=== PATIENT | male | born 1960 | race Caucasian/White ===

== ENCOUNTER 2020-09-12 00:20 | Observation (INO) | payer BC ==
[2020-09-12] MEDS ORDERED: HEPARIN SODIUM 1,000 UN/ML (10ML VL) IV PRN (00:22)
[2020-09-12] MEDS ORDERED: HEPARIN SOD,PORK IN 0.45% NACL 25,000 UNIT in 0.45% NACL 1 250ML.BAG IV SCH (00:30)
[2020-09-12] MEDS ORDERED: NALOXONE 0.4 MG/ML 1 ML VIAL IV PRN (01:02)
--- NOTE | 2020-09-12 01:03 | ED ---
SOB HPI - General Source: patient, EMS Mode of arrival: EMS Limitations: no limitations <Karolina Nye - Last Filed: 09/12/20 02:03> <Chemo Guerra - Last Filed: 09/12/20 07:34> - General Chief Complaint: Shortness of Breath Stated Complaint: SOB - History of Present Illness Initial Comments: 60-year-old male presenting as transfer from [facility] for diagnosis of pulmonary embolism. Patient states that he has been ill with covi 19 x 2 weeks, he states his symptoms initially began with cough shortness of breath fevers chills and body aches. Patient states that these have been persistent symptoms for the past 2 weeks and worsened over the past few days. Patient presented to [facility] where he was diagnosed today after CT angiography of the chest with pulmonary embolism (small right sided). Patient was also found to be hyponatremic (126). Have both glucose and ketones in urine, with serum glucose of 261-pt is a type 1 diabetic. Patient hydrated, placed on heparin drip with bolus at outside facility and transferred to our facility. (Karolina Nye) - Related Data Allergies Allergy/AdvReac Type Severity Reaction Status Date / Time No Known Allergies Allergy Verified 09/12/20 00:25 Review of Systems ROS Other: All systems not noted in ROS Statement are negative. <Karolina Nye - Last Filed: 09/12/20 02:03> ROS Other: All systems not noted in ROS Statement are negative. <Chemo Guerra - Last Filed: 09/12/20 07:34> ROS Statement: Those systems with pertinent positive or pertinent negative responses have been documented in the HPI. Past Medical History Past Medical History: Diabetes Mellitus, Hyperlipidemia, Hypertension History of Any Multi-Drug Resistant Organisms: None Reported Past Surgical History: Orthopedic Surgery Past Psychological History: No Psychological Hx Reported Smoking Status: Never smoker Past Alcohol Use History: Rare Past Drug Use History: None Reported <Karolina Nye - Last Filed: 09/12/20 02:03> - Past Family History Father Family Medical History: CVA/TIA Mother Family Medical History: No Reported History <Chemo Guerra - Last Filed: 09/12/20 07:34> General Exam Limitations: no limitations <Karolina Nye - Last Filed: 09/12/20 02:03> - General Exam Comments Initial Comments: General: The patient is awake and alert, in no distress, and does not appear acutely ill. Eye: Pupils are equal, round and reactive to light, extra-ocular movements are intact. No nystagmus. There is normal conjunctiva bilaterally. No signs of icterus. Ears, nose, mouth and throat: There are moist mucous membranes and no oral lesions. Neck: The neck is supple, there is no tenderness or JVD. Cardiovascular: There is a regular rate and rhythm. No murmur, rub or gallop is appreciated. Respiratory: Lungs are clear to auscultation, respirations are non-labored, breath sounds are equal. No wheezes, stridor, rales, or rhonchi. Gastrointestinal: Soft, non-distended, non-tender abdomen without masses or organomegaly noted. There is no rebound or guarding present. Musculoskeletal: Normal ROM, no tenderness. Strength 5/5. Sensation intact. Pulses equal bilaterally 2+. Neurological: A&O x 3. CN II-XII intact, There are no obvious motor or sensory deficits. Coordination appears grossly intact. Speech is normal. Skin: Skin is warm and dry and no rashes or lesions are noted. Psychiatric: Cooperative, appropriate mood & affect, normal judgment. (Karolina Nye) Course Vital Signs 09/12/20 09/12/20 09/12/20 00:26 01:15 02:00 Temperature 97.9 F Pulse Rate 68 58 L Respiratory 18 16 18 Rate Blood Pressure 130/84 130/84 O2 Sat by Pulse 94 L 96 Oximetry Medical Decision Making - Lab Data Result diagrams: 09/12/20 01:15 <Karolina Nye - Last Filed: 09/12/20 02:03> - Lab Data Result diagrams: 09/12/20 01:15 <Chemo Guerra - Last Filed: 09/12/20 07:34> - Medical Decision Making 60-year-old male presenting to the emergency department as a transfer from outside facility for NATE goddard. Pt has history of type 1 DM. Patient continued on heparin drip. He does not appear in distress. Oxygenating well on room air. no hypotension or tachycardia. Patient is a type I diabetic, with a current insulin pump. patient sugar 260 at outside facility. will continue to franchesca tor/hydrate. routine labs ordered for morning. Patient agreeable to admission. Dr. Guerra agreeable to admission. Pulmonology on consult. (Karolina Nye) Disposition Is patient prescribed a controlled substance at d/c from ED?: No Time of Disposition: 01:03 Decision to Admit Reason: Admit from EC Decision Date: 09/12/20 Decision Time: 01:03 <Karolina Nye - Last Filed: 09/12/20 02:03> <Chemo Guerra - Last Filed: 09/12/20 07:34> Clinical Impression: Dyspnea, COVID-19, Pneumonia due to COVID-19 virus, Pulmonary embolism, Elevated glucose Disposition: ADMITTED IP TO THIS HOSP Condition: Stable
[2020-09-12 01:52] LABS: Basophils % (A) 1 %; Eosinophils # (A) 0.1 k/uL (0-0.7); Eosinophils % (A) 1 %; HCT 41.9 % (39.0-53.0); HGB 14.3 gm/dL (13.0-17.5); Lymphocytes # (A) 0.7 k/uL (1.0-4.8); Lymphocytes % (A) 12 %; MCH 30.4 pg (25.0-35.0); MCV 89.6 fL (80.0-100.0); Mean Platelet Volume 8.6; Monocytes # (A) 0.6 k/uL (0-1.0); Monocytes % (A) 11 %; Neutrophils # (A) 4.4 k/uL (1.3-7.7); Neutrophils % (A) 73 %; Platelet Count 248 k/uL (150-450); RBC 4.68 m/uL (4.30-5.90); RDW 12.1 % (11.5-15.5)
[2020-09-12 01:53] LABS: Partial Thromboplastin Time 40.8 sec (22.0-30.0); Prothrombin Time 10.7 sec (9.0-12.0)
[2020-09-12] MEDS ORDERED: INSPUCOR MISCELLANE PRN (03:30)
[2020-09-12] MEDS ORDERED: INSULIN ASPART (NovoLOG) 100 UNIT/ML VIAL SQ PRN (03:30)
[2020-09-12] MEDS ORDERED: INSULIN PUMP BASAL RATES 1 EACH MISC MISCELLANE PRN (03:30)
[2020-09-12 03:41] VITALS: RESP 18
[2020-09-12] MEDS ORDERED: SODIUM CHLORIDE 0.9% 1,000 ML IV SCH (05:15)
[2020-09-12 06:17] LABS: Glucose,Whole Blood 117 mg/dL (75-99)
[2020-09-12] MEDS: INSULIN PUMP MEAL BOLUS 1 UNIT MISC MISCELLANE SCH ×2 (06:19→12:48)
[2020-09-12 09:09] LABS: Basophils % (A) 1 %; Eosinophils # (A) 0.2 k/uL (0-0.7); Eosinophils % (A) 3 %; HCT 44.4 % (39.0-53.0); HGB 15.1 gm/dL (13.0-17.5); Lymphocytes # (A) 0.9 k/uL (1.0-4.8); Lymphocytes % (A) 15 %; MCH 30.5 pg (25.0-35.0); MCHC 33.9 g/dL (31.0-37.0); Mean Platelet Volume 9.3; Monocytes # (A) 0.5 k/uL (0-1.0); Monocytes % (A) 8 %; Neutrophils # (A) 4.4 k/uL (1.3-7.7); Neutrophils % (A) 72 %; Platelet Count 260 k/uL (150-450); RBC 4.93 m/uL (4.30-5.90); RDW 12.2 % (11.5-15.5); WBC 6.1 k/uL (3.8-10.6)
[2020-09-12 09:34] LABS: ALT 25 U/L (4-49); AST 38 U/L (17-59); African American GFR (CKD) >90 (>60 ml/min/1.73 sqM); Albumin 2.4 g/dL (3.5-5.0); Alkaline Phosphatase 74 U/L (38-126); Anion Gap 6 mmol/L; Blood Urea Nitrogen 16 mg/dL (9-20); Calcium 7.8 mg/dL (8.4-10.2); Carbon Dioxide 27 mmol/L (22-30); Chloride 98 mmol/L (98-107); Glucose 114 mg/dL (74-99); Non-African American GFR(CKD) >90 (>60 ml/min/1.73 sqM); Potassium 4.2 mmol/L (3.5-5.1); Sodium 131 mmol/L (137-145); Total Bilirubin 1.1 mg/dL (0.2-1.3); Total Protein 4.8 g/dL (6.3-8.2)
--- NOTE | 2020-09-12 11:29 | XR ---
EXAMINATION TYPE: XR chest 1V portable DATE OF EXAM: 09/12/2020 Comparison: None Clinical History: 60-year-old male CoVID pneumonia Findings: Heart normal size. Aorta and pulmonary vascularity within normal limits. Patchy bilateral interstitia l opacities more confluent in the periphery of the lungs. No pleural effusion. Impression: Patchy bilateral COVID pneumonia.
[2020-09-12] MEDS ORDERED: INSULIN ASPART SQ PRN (11:30)
[2020-09-12] MEDS ORDERED: SODIUM CHLORIDE 0.9% 500 ML 500 ML IV ONE (11:31)
[2020-09-12 11:36] LABS: Glucose,Whole Blood 346 mg/dL (75-99)
[2020-09-12 12:43] VITALS: BP 125/78; PULSE 71; TEMP 98
--- NOTE | 2020-09-12 14:43 | P.DS ---
Providers Date of admission: 09/12/20 01:04 Attending physician: Apoorva Darling Consults: 09/12/20 01:04 Consult Physician Routine Consulting Provider: Morenita Peace Consult Reason/Comments: covid with small PE Do you want consulting provider notified?: Yes, Notify in am Primary care physician: Jose Manuel Whalen [facility] Course: Refer to [facility] for further details Patient Condition at Discharge: Stable Plan - Discharge Summary Discharge Rx Participant: No New Discharge Prescriptions: New Apixaban [Eliquis Starter Pack (for VTE)] 0 mg PO DIRECTED 30 Days #1 pack Ascorbic Acid [Vitamin C] 500 mg PO BID #30 tablet Famotidine [Pepcid] 20 mg PO BID #10 tablet lisinopriL [Zestril] 20 mg PO DAILY #30 tab Zinc Sulfate 50 mg PO 20 #30 capsule Continue Insulin Aspart (Niacinamide) [Fiasp 100 Unit/ml Vial] 0.01 unit SQ CONTINUOUS MDD 90 UNITS Atorvastatin Calcium [Lipitor] 40 mg PO DAILY Primidone [Mysoline] 50 mg PO DAILY Discontinued lisinopriL 30 mg PO DAILY Discharge Medication List Apixaban [Eliquis Starter Pack (for VTE)] 0 mg PO DIRECTED 30 Days #1 pack 09/12/20 [Rx] Ascorbic Acid [Vitamin C] 500 mg PO BID #30 tablet 09/12/20 [Rx] Atorvastatin Calcium [Lipitor] 40 mg PO DAILY 09/12/20 [History] Famotidine [Pepcid] 20 mg PO BID #10 tablet 09/12/20 [Rx] Insulin Aspart (Niacinamide) [Fiasp 100 Unit/ml Vial] 0.01 unit SQ CONTINUOUS MDD 90 UNITS 09/12/20 [History] Primidone [Mysoline] 50 mg PO DAILY 09/12/20 [History] Zinc Sulfate 50 mg PO 20 #30 capsule 09/12/20 [Rx] lisinopriL [Zestril] 20 mg PO DAILY #30 tab 09/12/20 [Rx] Follow up Appointment(s)/Referral(s): Jose Manuel Whalen MD [Primary Care Provider] - 3 Days Patient Instructions/Handouts: Pulmonary Embolism (DC) Discharge Disposition: HOME SELF-CARE
--- NOTE | 2020-09-12 14:43 | P.HPIM ---
History of Present Illness 60-year-old male presenting as transfer from [facility] for diagnosis of pulmonary embolism. Patient states that he has been ill with covi 19 x 2 weeks, he states his symptoms initially began with cough shortness of breath fevers chills and body aches. Patient states that these have been persistent symptoms for the past 2 weeks and worsened over the past few days. Patient presented to [facility] where he was diagnosed today after CT angiography of the chest with pulmonary embolism (small right sided). Patient was also found to be hyponatremic (126). Have both glucose and ketones in urine, . Patient hydrated, placed on heparin drip with bolus at outside facility and transferred to our facility. Patient is presently not requiring oxygen while ambulating. Patient will be discharged on Eliquis. Patient's blood sugars are bit high but not in the diabetic ketoacidosis. Patient is also hyponatremic will give a bolus of IV fluid. Patient will be provided prescription for [place] with vitamins will not be given prescription for Decadron because of concerns of diabetic ketoacidosis and patient is not hypoxic at this time. Review of Systems REVIEW OF SYSTEMS: CONSTITUTIONAL: As mentioned in HPI HEENT: No recent visual problems or hearing problems. Denied any sore throat. CARDIOVASCULAR: No chest pain, orthopnea, PND, no palpitations, no syncope. PULMONARY: No shortness of breath, no cough, no hemoptysis. GASTROINTESTINAL: No diarrhea, no nausea, no vomiting, no abdominal pain. NEUROLOGICAL: No headaches, no weakness, no numbness. HEMATOLOGICAL: Denies any bleeding or petechiae. GENITOURINARY: Denies any burning micturition, frequency, or urgency. MUSCULOSKELETAL/RHEUMATOLOGICAL: Denies any joint pain, swelling, or any muscle pain. ENDOCRINE: Denies any polyuria or polydipsia. The rest of the 14-point review of systems is negative. Past Medical History Past Medical History: Diabetes Mellitus, Hyperlipidemia, Hypertension History of Any Multi-Drug Resistant Organisms: None Reported Past Surgical History: Orthopedic Surgery Additional Past Surgical History / Comment(s): femur fx and repair Past Anesthesia/Blood Transfusion Reactions: No Reported Reaction Past Psychological History: No Psychological Hx Reported Smoking Status: Never smoker Past Alcohol Use History: Rare Past Drug Use History: None Reported - Past Family History Father Family Medical History: CVA/TIA Mother Family Medical History: No Reported History Medications and Allergies Home Medications Medication Instructions Recorded Confirmed Type Apixaban [Eliquis Starter Pack 0 mg PO DIRECTED 30 Days #1 pack 09/12/20 Rx (for VTE)] Ascorbic Acid [Vitamin C] 500 mg PO BID #30 tablet 09/12/20 Rx Atorvastatin Calcium [Lipitor] 40 mg PO DAILY 09/12/20 09/12/20 History Dexamethasone [Decadron] 6 mg PO DAILY #5 tablet 09/12/20 Rx Famotidine [Pepcid] 20 mg PO BID #10 tablet 09/12/20 Rx Insulin Aspart (Niacinamide) 0.01 unit SQ CONTINUOUS MDD 90 09/12/20 09/12/20 History [Fiasp 100 Unit/ml Vial] UNITS Primidone [Mysoline] 50 mg PO DAILY 09/12/20 09/12/20 History Zinc Sulfate 50 mg PO 20 #30 capsule 09/12/20 Rx lisinopriL [Zestril] 20 mg PO DAILY #30 tab 09/12/20 Rx Allergies Allergy/AdvReac Type Severity Reaction Status Date / Time No Known Allergies Allergy Verified 09/12/20 08:04 Physical Exam Vitals: Vital Signs Temp Pulse Pulse Resp BP BP Pulse Ox 09/12/20 11:35 98 F 71 18 125/78 95 09/12/20 08:25 98.1 F 81 18 119/71 92 L 09/12/20 03:00 97.6 F 70 18 133/70 92 L 09/12/20 02:35 97.8 F 55 L 20 135/84 96 09/12/20 02:00 18 09/12/20 01:15 58 L 16 130/84 96 09/12/20 00:26 97.9 F 68 18 130/84 94 L Intake and Output 09/11/20 09/12/20 09/12/20 22:59 06:59 14:59 Intake Total 965 Output Total 300 200 Balance -300 765 Intake: Intake, IV Titration 500 Amount Sodium Chloride 0.9% 500 500 ml 500 ml @ 999 mls/hr IV .Q31M ONE Rx#:[id number] Oral 465 Output: Urine 300 200 Other: Weight 73 kg PHYSICAL EXAMINATION: GENERAL: The patient is alert and oriented x3, not in any acute distress. Well developed, well nourished. HEENT: Pupils are round and equally reacting to light. EOMI. No scleral icterus. No conjunctival pallor. Normocephalic, atraumatic. No pharyngeal erythema. No thyromegaly. CARDIOVASCULAR: S1 and S2 present. No murmurs, rubs, or gallops. PULMONARY: Chest is clear to auscultation, no wheezing or crackles. ABDOMEN: Soft, nontender, nondistended, normoactive bowel sounds. No palpable organomegaly. MUSCULOSKELETAL: No joint swelling or deformity. EXTREMITIES: No cyanosis, clubbing, or pedal edema. NEUROLOGICAL: Gross neurological examination did not reveal any focal deficits. SKIN: No rashes. Results CBC & Chem 7: 09/12/20 07:08 09/12/20 07:08 Labs: Abnormal Lab Results - Last 24 Hours (Table) 09/12/20 09/12/20 09/12/20 Range/Units 01:15 01:15 06:15 Lymphocytes # 0.7 L (1.0-4.8) k/uL APTT 40.8 H (22.0-30.0) sec Sodium (137-145) mmol/L Glucose (74-99) mg/dL POC Glucose (mg/dL) 117 H (75-99) mg/dL Calcium (8.4-10.2) mg/dL Total Protein (6.3-8.2) g/dL Albumin (3.5-5.0) g/dL 09/12/20 09/12/20 09/12/20 Range/Units 07:08 07:08 07:08 Lymphocytes # 0.9 L (1.0-4.8) k/uL APTT 46.8 H (22.0-30.0) sec Sodium 131 L (137-145) mmol/L Glucose 114 H (74-99) mg/dL POC Glucose (mg/dL) (75-99) mg/dL Calcium 7.8 L (8.4-10.2) mg/dL Total Protein 4.8 L (6.3-8.2) g/dL Albumin 2.4 L (3.5-5.0) g/dL 09/12/20 Range/Units 11:35 Lymphocytes # (1.0-4.8) k/uL APTT (22.0-30.0) sec Sodium (137-145) mmol/L Glucose (74-99) mg/dL POC Glucose (mg/dL) 346 H (75-99) mg/dL Calcium (8.4-10.2) mg/dL Total Protein (6.3-8.2) g/dL Albumin (3.5-5.0) g/dL Thrombosis Risk Factor Assmnt - Choose All That Apply Any of the Below Risk Factors Present?: Yes Each Factor Represents 1 point: Serious lung disease incl. pneumonia (< 1month) Other Risk Factors: Yes Each Risk Factor Represents 2 Points: Age 61-74 years Other congenital or acquired thrombophilia - If yes, enter type in comment: No Thrombosis Risk Factor Assessment Total Risk Factor Score: 3 Thrombosis Risk Factor Assessment Level: Moderate Risk Assessment and Plan Plan: -Acute pulmonary emboli: Patient is medically stable patient is not requiring oxygen, patient will be discharged on Eliquis. PE secondary to covid 19, patient anti-correlation can be discontinued in 3-6 months. -Covid 19 pneumonia and sepsis is not requiring oxygen is not a candidate for Decadron. -Type 1 diabetes mellitus patient is not in diabetic ketoacidosis mildly elevated blood sugars secondary to the D5 he is receiving with the heparin drip -Hyperlipidemia -Hypertension Patient will be discharged today as mentioned above
--- NOTE | 2020-09-12 15:05 | P.CNPUL ---
History of Present Illness Consult date: 09/12/20 Requesting physician: Zee Gardner Reason for consult: pneumonia, pulmonary embolism Chief complaint: Shortness of breath and cough History of present illness: This is a 60-year-old white male who was diagnosed over 2 weeks ago at [facility] with acute covid 19 pneumonia. Patient had minimal clinical symptoms, did not require admission to the hospital. And he basically was treated with [id number] medications. Patient returned yesterday to [facility] with worsening symptoms of shortness of breath, and a CT angiogram was done. It raised the possibility of right sided embolism. Patient was also noted to be hyponatremic with a sodium of 126, and he had positive glucose and ketones in the urine. Patient was transferred to [facility] for further evaluation of his pulmonary embolism and his recent Covid 19 infection. Clinically the patient seems to be doing well, he is actually on room air, in no distress. Upon arrival to our [facility], patient was placed on heparin, and I suggested transitioning the patient to either Xarelto or eliquis, and possibly discharge the patient home later today or in a.m. Patient already received fluid boluses for his hyponatremia, repeat sodium was 131. CBC this morning is normal. Blood sugar this morning was 346. Again the patient does not seem to be in any distress, he has some shortness of breath on exertion only. Review of Systems HEENT: No recent visual problems or hearing problems. Denied any sore throat. CARDIOVASCULAR: No chest pain, orthopnea, PND, no palpitations, no syncope. Patient has minimal dyspnea on exertion. PULMONARY: , no cough, no hemoptysis. No chest pain. GASTROINTESTINAL: No diarrhea, no nausea, no vomiting, no abdominal pain. NEUROLOGICAL: No headaches, no weakness, no numbness. HEMATOLOGICAL: Denies any bleeding or petechiae. GENITOURINARY: Denies any burning micturition, frequency, or urgency. MUSCULOSKELETAL/RHEUMATOLOGICAL: Denies any joint pain, swelling, or any muscle pain. ENDOCRINE: Denies any polyuria or polydipsia. Past Medical History Past Medical History: Diabetes Mellitus, Hyperlipidemia, Hypertension History of Any Multi-Drug Resistant Organisms: None Reported Past Surgical History: Orthopedic Surgery Additional Past Surgical History / Comment(s): femur fx and repair Past Anesthesia/Blood Transfusion Reactions: No Reported Reaction Past Psychological History: No Psychological Hx Reported Smoking Status: Never smoker Past Alcohol Use History: Rare Past Drug Use History: None Reported - Past Family History Father Family Medical History: CVA/TIA Mother Family Medical History: No Reported History Medications and Allergies Home Medications Medication Instructions Recorded Confirmed Type Apixaban [Eliquis Starter Pack 0 mg PO DIRECTED 30 Days #1 pack 09/12/20 Rx (for VTE)] Ascorbic Acid [Vitamin C] 500 mg PO BID #30 tablet 09/12/20 Rx Atorvastatin Calcium [Lipitor] 40 mg PO DAILY 09/12/20 09/12/20 History Famotidine [Pepcid] 20 mg PO BID #10 tablet 09/12/20 Rx Insulin Aspart (Niacinamide) 0.01 unit SQ CONTINUOUS MDD 90 09/12/20 09/12/20 History [Fiasp 100 Unit/ml Vial] UNITS Primidone [Mysoline] 50 mg PO DAILY 09/12/20 09/12/20 History Zinc Sulfate 50 mg PO 20 #30 capsule 09/12/20 Rx lisinopriL [Zestril] 20 mg PO DAILY #30 tab 09/12/20 Rx Allergies Allergy/AdvReac Type Severity Reaction Status Date / Time No Known Allergies Allergy Verified 09/12/20 08:04 Physical Exam Vitals: Vital Signs Temp Pulse Pulse Resp BP BP Pulse Ox 09/12/20 11:35 98 F 71 18 125/78 95 09/12/20 08:25 98.1 F 81 18 119/71 92 L 09/12/20 03:00 97.6 F 70 18 133/70 92 L 09/12/20 02:35 97.8 F 55 L 20 135/84 96 09/12/20 02:00 18 09/12/20 01:15 58 L 16 130/84 96 09/12/20 00:26 97.9 F 68 18 130/84 94 L Intake and Output 09/11/20 09/12/20 09/12/20 22:59 06:59 14:59 Intake Total 965 Output Total 300 200 Balance -300 765 Intake: Intake, IV Titration 500 Amount Sodium Chloride 0.9% 500 500 ml 500 ml @ 999 mls/hr IV .Q31M ONE Rx#:[id number] Oral 465 Output: Urine 300 200 Other: Weight 73 kg Physical Exam revealed 60-year-old white male, pleasant on room air, in no distress. On room air, O2 saturations 95%. Head: Atraumatic, normocephalic. HEENT:[Neck is supple.] [No neck masses.] [No thyromegaly.] [No JVD.] Chest: [Clear throughout, no crackles, no rhonchi, no wheezes.] Cardiac Exam: [Normal S1 and S2, no S3 gallop, no murmur.] Abdomen: [Soft, nontender, no megaly, no rebound, no guarding, normal bowel sounds.] Extremities: [No clubbing, no edema, no cyanosis.] Neurological Exam: [No focal neurologic deficit.] And oriented 3. Psychiatric: Normal mood affect and normal mental status examination. Skin: No rashes. [place] skeletal no deformities and no limitation in range of motion. Results - Laboratory Findings CBC and BMP: 09/12/20 07:08 09/12/20 07:08 PT/INR, D-dimer PT 10.7 sec (9.0-12.0) 09/12/20 01:15 INR 1.0 (<1.2) 09/12/20 01:15 Abnormal lab findings: Abnormal Labs 09/12/20 09/12/20 09/12/20 01:15 01:15 06:15 Lymphocytes # 0.7 L APTT 40.8 H Sodium Glucose POC Glucose (mg/dL) 117 H Calcium Total Protein Albumin 09/12/20 09/12/20 09/12/20 07:08 07:08 07:08 Lymphocytes # 0.9 L APTT 46.8 H Sodium 131 L Glucose 114 H POC Glucose (mg/dL) Calcium 7.8 L Total Protein 4.8 L Albumin 2.4 L 09/12/20 11:35 Lymphocytes # APTT Sodium Glucose POC Glucose (mg/dL) 346 H Calcium Total Protein Albumin - Diagnostic Findings Chest x-ray: image reviewed (Chest x-ray showed bilateral peripheral infiltrates consistent with either acute or subacute covid 19 pneumonitis) Assessment and Plan Assessment: Impression: Acute pulmonary embolism, most likely provoked and triggered by recent Covid 19 infection. Acute Covid 19 pneumonia Type 1 diabetes Benign essential hypertension Dyslipidemia Pseudohyponatremia secondary to hyperglycemia Recommendation: Fully agree with the present treatment plan. Continue the Covid 19 cocktail. Agree with discharge planning. Patient remains on room air, and his symptoms were over 2 weeks ago. Chest x-ray was reviewed and I believe the findings are probably residual from recent pneumonia related to Covid 19. Agree with transitioning the patient to oral anticoagulation therapy using Xarelto or eliquis, and I would suggest outpatient treatment for at least 3-6 months. Time with Patient: Greater than 30
[2020-09-13] MEDS ORDERED: PRIMIDONE 50 MG TAB PO SCH (09:00)
[2020-09-13] MEDS ORDERED: lisinopriL 20 MG TAB PO SCH (09:00)
[2020-09-13] MEDS ORDERED: ATORVASTATIN 40 MG TAB PO SCH (09:00)
== END 2020-09-12 16:10 | disposition home or self-care (01) ==
LOC: SUPCPDRO 00:20 → EC 00:20 → INTOOBSV 01:04 → 3SCARD 01:04 → UNDODISIN 16:10
PROVIDERS: ADMIT Hospitalist; ATTEND Hospitalist
DX: U07.1 COVID-19 (principal); I26.99 Other pulmonary embolism without acute cor pulmonale; J12.82 Pneumonia due to coronavirus disease 2019; E78.5 Hyperlipidemia, unspecified; I10 Essential (primary) hypertension; E10.65 Type 1 diabetes mellitus with hyperglycemia; Z79.899 Other long term (current) drug therapy; Z79.01 Long term (current) use of anticoagulants; Z87.01 Personal history of pneumonia (recurrent); Z79.4 Long term (current) use of insulin; Z96.41 Presence of insulin pump (external) (internal); Z87.81 Personal history of (healed) traumatic fracture; Z82.3 Family history of stroke
CPT/HCPCS: 96365; 99285; 80053; 85025; 85610; 85730; 71045; G0378; J1644

== ENCOUNTER 2024-11-25 03:45 | Observation (INO) | payer BC, MEDICARE ==
--- NOTE | 2024-11-25 04:41 | ED ---
General Adult HPI - General Chief complaint: Chest Pain Stated complaint: Chest Pain Time Seen by Provider: 11/25/24 04:14 Source: EMS Mode of arrival: EMS Limitations: no limitations - History of Present Illness Initial comments: This patient is a 64-year-old man who arrives here as a transfer from [facility]. The patient states he was not feeling well earlier in the day, probably about noon. He had had some mid abdominal discomfort and accompanying nausea. He had an episode of vomiting and then following that he was having persistent heartburn. He had also had some heartburn on the preceding day. Patient states that they were concerned because the heartburn persisted there. The patient was transferred here to have cardiology evaluation. When I interviewed the patient, he states that the heartburn has improved somewhat. Review of studies from the other hospital shows CBC with no abnormalities, chemistry which showed a glucose of 172, otherwise unremarkable PT and PTT normal. Troponin negative, BNP normal the patient had chest x-ray that was interpreted as negative. Onset/Timin -: hour(s) Location: chest Radiation: non-radiation Quality: burning Consistency: now resolved Improves with: medication Worsens with: none Associated Symptoms: nausea/vomiting Treatments Prior to Arrival: Aspirin, other - Related Data Home Medications Medication Instructions Recorded Confirmed Atorvastatin Calcium [Lipitor] 40 mg PO DAILY 09/12/20 09/12/20 Insulin Aspart (Niacinamide) 0.01 unit SQ CONTINUOUS MDD 90 09/12/20 09/12/20 [Fiasp 100 Unit/ml Vial] UNITS Primidone [Mysoline] 50 mg PO DAILY 09/12/20 09/12/20 Previous Rx's Medication Instructions Recorded Apixaban [Eliquis Starter Pack 0 mg PO DIRECTED 30 Days #1 pack 09/12/20 (for VTE)] Ascorbic Acid [Vitamin C] 500 mg PO BID #30 tablet 09/12/20 Famotidine [Pepcid] 20 mg PO BID #10 tablet 09/12/20 Zinc Sulfate 50 mg PO 20 #30 capsule 09/12/20 lisinopriL [Zestril] 20 mg PO DAILY #30 tab 09/12/20 Allergies Allergy/AdvReac Type Severity Reaction Status Date / Time No Known Allergies Allergy Verified 11/25/24 03:53 Review of Systems ROS Statement: Those systems with pertinent positive or pertinent negative responses have been documented in the HPI. ROS Other: All systems not noted in ROS Statement are negative. Constitutional: Denies: fever, chills, weakness Respiratory: Denies: cough, dyspnea Cardiovascular: Reports: chest pain. Denies: palpitations, orthopnea, edema, syncope Gastrointestinal: Reports: nausea. Denies: abdominal pain, vomiting Genitourinary: Denies: dysuria, hematuria Musculoskeletal: Denies: back pain Skin: Denies: rash Neurological: Denies: headache, weakness Past Medical History Past Medical History: Diabetes Mellitus, Hyperlipidemia, Hypertension History of Any Multi-Drug Resistant Organisms: None Reported Past Surgical History: Orthopedic Surgery Additional Past Surgical History / Comment(s): femur fx and repair Past Anesthesia/Blood Transfusion Reactions: No Reported Reaction Past Psychological History: No Psychological Hx Reported Smoking Status: Never smoker Past Alcohol Use History: Rare Past Drug Use History: None Reported - Past Family History Father Family Medical History: CVA/TIA Mother Family Medical History: No Reported History General Exam General appearance: alert, in no apparent distress Head exam: Present: atraumatic, normocephalic Eye exam: Present: normal appearance. Absent: scleral icterus, conjunctival injection ENT exam: Present: normal oropharynx Neck exam: Present: normal inspection, full ROM. Absent: tenderness Respiratory exam: Present: normal lung sounds bilaterally. Absent: respiratory distress, wheezes, rales, rhonchi, stridor, accessory muscle use Cardiovascular Exam: Present: regular rate, normal rhythm, normal heart sounds. Absent: systolic murmur, diastolic murmur, rubs, gallop GI/Abdominal exam: Present: soft. Absent: distended, tenderness, guarding, rebound, rigid, mass Extremities exam: Present: normal inspection Back exam: Present: normal inspection Neurological exam: Present: alert Skin exam: Present: warm, dry, intact, normal color. Absent: rash Course Vital Signs 11/25/24 11/25/24 03:47 05:39 Temperature 98.5 F Pulse Rate 97 96 Respiratory 19 19 Rate Blood Pressure 141/97 122/83 O2 Sat by Pulse 96 97 Oximetry Medical Decision Making - Lab Data Result diagrams: 11/25/24 04:30 11/25/24 04:30 Lab Results 11/25/24 11/25/24 11/25/24 Range/Units 04:30 04:30 04:30 WBC 9.35 (4.50-10.00) 10*3/uL RBC 4.76 (4.40-5.60) 10*6/uL Hgb 13.7 (13.0-17.0) g/dL Hct 41.0 (39.6-50.0) % MCV 86.1 (80.0-97.0) fL MCH 28.8 (27.0-32.0) pg MCHC 33.4 (32.0-37.0) g/dL Plt Count 258 (140-440) 10*3/uL MPV 10.5 (9.5-12.2) fL Immature Gran % (Auto) 0.3 % Neutrophils % 71.4 % Lymphocytes % 15.3 % Monocytes % 8.1 % Eosinophils % 4.4 % Basophils % 0.5 % Immature Gran # 0.03 (0.00-0.04) 10*3/uL Neutrophils # 6.67 (1.80-7.70) 10*3/uL Lymphocytes # 1.43 (0.90-5.00) 10*3/uL Monocytes # 0.76 (0.20-1.00) 10*3/uL Eosinophils # 0.41 H (0.04-0.35) 10*3/uL Basophils # 0.05 (0.00-0.10) 10*3/uL PT 10.1 (10.0-12.5) sec INR 0.9 (<1.2) APTT 24.8 (22.0-30.0) sec Sodium 134 L (137-145) mmol/L Potassium 3.9 (3.5-5.1) mmol/L Chloride 103 (98-107) mmol/L Carbon Dioxide 22 (22-30) mmol/L Anion Gap 9 mmol/L BUN 23 H (9-20) mg/dL Creatinine 1.02 (0.66-1.25) mg/dL Est GFR (CKD-EPI)AfAm 89 (>60 ml/min/1.73 sqM) Est GFR (CKD-EPI)NonAf 77 (>60 ml/min/1.73 sqM) Glucose 160 H (74-99) mg/dL Calcium 8.8 (8.4-10.2) mg/dL Magnesium 2.0 (1.6-2.3) mg/dL Total Bilirubin 0.5 (0.2-1.3) mg/dL AST 24 (17-59) U/L ALT 14 (4-49) U/L Alkaline Phosphatase 87 (38-126) U/L Troponin I (0.000-0.034) ng/mL Total Protein 5.6 L (6.3-8.2) g/dL Albumin 3.3 L (3.5-5.0) g/dL 11/25/24 Range/Units 04:30 WBC (4.50-10.00) 10*3/uL RBC (4.40-5.60) 10*6/uL Hgb (13.0-17.0) g/dL Hct (39.6-50.0) % MCV (80.0-97.0) fL MCH (27.0-32.0) pg MCHC (32.0-37.0) g/dL Plt Count (140-440) 10*3/uL MPV (9.5-12.2) fL Immature Gran % (Auto) % Neutrophils % % Lymphocytes % % Monocytes % % Eosinophils % % Basophils % % Immature Gran # (0.00-0.04) 10*3/uL Neutrophils # (1.80-7.70) 10*3/uL Lymphocytes # (0.90-5.00) 10*3/uL Monocytes # (0.20-1.00) 10*3/uL Eosinophils # (0.04-0.35) 10*3/uL Basophils # (0.00-0.10) 10*3/uL PT (10.0-12.5) sec INR (<1.2) APTT (22.0-30.0) sec Sodium (137-145) mmol/L Potassium (3.5-5.1) mmol/L Chloride (98-107) mmol/L Carbon Dioxide (22-30) mmol/L Anion Gap mmol/L BUN (9-20) mg/dL Creatinine (0.66-1.25) mg/dL Est GFR (CKD-EPI)AfAm (>60 ml/min/1.73 sqM) Est GFR (CKD-EPI)NonAf (>60 ml/min/1.73 sqM) Glucose (74-99) mg/dL Calcium (8.4-10.2) mg/dL Magnesium (1.6-2.3) mg/dL Total Bilirubin (0.2-1.3) mg/dL AST (17-59) U/L ALT (4-49) U/L Alkaline Phosphatase (38-126) U/L Troponin I <0.012 (0.000-0.034) ng/mL Total Protein (6.3-8.2) g/dL Albumin (3.5-5.0) g/dL Disposition Clinical Impression: Chest pain Disposition: ADMITTED IP TO THIS HOSP Condition: Good Instructions (If sedation given, give patient instructions): Chest Pain (ED) Is patient prescribed a controlled substance at d/c from ED?: No Referrals: Jose Manuel Whalen MD [Primary Care Provider] - 1-2 days
[2024-11-25 05:02] LABS: Basophils # (A) 0.05 10*3/uL (0.00-0.10); Basophils % (A) 0.5 %; Eosinophils # (A) 0.41 10*3/uL (0.04-0.35); Eosinophils % (A) 4.4 %; HGB 13.7 g/dL (13.0-17.0); Lymphocytes # (A) 1.43 10*3/uL (0.90-5.00); Lymphocytes % (A) 15.3 %; MCH 28.8 pg (27.0-32.0); MCHC 33.4 g/dL (32.0-37.0); MCV 86.1 fL (80.0-97.0); Mean Platelet Volume 10.5 fL (9.5-12.2); Monocytes # (A) 0.76 10*3/uL (0.20-1.00); Monocytes % (A) 8.1 %; Neutrophils # (A) 6.67 10*3/uL (1.80-7.70); Neutrophils % (A) 71.4 %; Platelet Count 258 10*3/uL (140-440); RBC 4.76 10*6/uL (4.40-5.60); RDW 13.7 % (11.5-14.5); WBC 9.35 10*3/uL (4.50-10.00)
[2024-11-25 05:14] LABS: INR 0.9 (<1.2); Partial Thromboplastin Time 24.8 sec (22.0-30.0); Prothrombin Time 10.1 sec (10.0-12.5)
[2024-11-25 05:15] LABS: ALT 14 U/L (4-49); AST 24 U/L (17-59); African American GFR (CKD) 89 (>60 ml/min/1.73 sqM); Albumin 3.3 g/dL (3.5-5.0); Alkaline Phosphatase 87 U/L (38-126); Anion Gap 9 mmol/L; Blood Urea Nitrogen 23 mg/dL (9-20); Calcium 8.8 mg/dL (8.4-10.2); Carbon Dioxide 22 mmol/L (22-30); Chloride 103 mmol/L (98-107); Glucose 160 mg/dL (74-99); Non-African American GFR(CKD) 77 (>60 ml/min/1.73 sqM); Potassium 3.9 mmol/L (3.5-5.1); Sodium 134 mmol/L (137-145); Total Bilirubin 0.5 mg/dL (0.2-1.3); Total Protein 5.6 g/dL (6.3-8.2)
[2024-11-25] MEDS ORDERED: NITROGLYCERIN SL TABS 0.4 MG TAB SUBLINGUAL PRN (06:29)
--- NOTE | 2024-11-25 07:21 | XR ---
EXAM: XR Chest, 1 View CLINICAL HISTORY: Chest Pain TECHNIQUE: Frontal view of the chest. COMPARISON: Chest radiograph 09/12/2020 FINDINGS: Lungs: Left lower lobe pneumonia suspected. Pleural space: Unremarkable. No pneumothorax. Heart: Unremarkable. No cardiomegaly. Mediastinum: Unremarkable. Normal mediastinal contour. Bones/joints: There are degenerative changes of the spine. No acute fracture. Chronic left rib fractures. IMPRESSION: Left lower lobe pneumonia suspected. Clinical correlation is recommended.
--- NOTE | 2024-11-25 07:52 | P.CRDCN ---
History of Present Illness History of present illness: HISTORY OF PRESENTING ILLNESS This is a pleasant 64-year-old with past medical history significant for diabetes mellitus type 1 for last 30 years, hypertension, hyperlipidemia, chewing tobacco, family history of CAD. 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 He initially presented to [facility] with episode of chest pain. He states he started feeling nauseous and upset stomach and threw up and then started to have chest pain. He was mildly diaphoretic. He had off-and-on chest discomfort and therefore presented to [facility]. He was given nitroglycerin with significant improvement immediately with his nitro. EKG showing minimal ST depressions and troponins normal. He does not smoke however uses some chewing tobacco, rare alcohol. Family history of 1 brother with pacemaker and 1 brother of an [place] in his 70s. He has been type I diabetic for approximately 30 years. REVIEW OF SYSTEMS At the time of my exam: CONSTITUTIONAL: Denies fever or chills. CARDIOVASCULAR: +chest pain, +shortness of breath, no orthopnea, PND or palpitations. RESPIRATORY: Denies cough. GASTROINTESTINAL: Denies abdominal pain, diarrhea, constipation, +nausea + vomiting. MUSCULOSKELETAL: Denies myalgias. NEUROLOGIC: Denies numbness, tingling or weakness. ENDOCRINE: Denies fatigue, weight change, polydipsia or polyurina. GENITOURINARY: Denies burning, hematuria or urgency with micturation. HEMATOLOGIC: Denies history of anemia or bleeding. PHYSICAL EXAMINATION Vital signs reviewed. CONSTITUTIONAL: No apparent distress. HEENT: Head is normocephalic. Pupils are equal, round. Sclerae anicteric. Mucous membranes of the mouth are moist. No JVD. No carotid bruit. CHEST EXAMINATION: Lungs are clear to auscultation. No chest wall tenderness is noted on palpation or with deep breathing. HEART EXAMINATION: Regular rate and rhythm. S1, S2 heard. No murmurs, gallops or rub. ABDOMEN: Soft, nontender. Positive bowel sounds. EXTREMITIES: 2+ peripheral pulses, no lower extremity edema and no calf tenderness. NEUROLOGIC EXAMINATION: Patient is awake, alert and oriented x3. ASSESSMENT Precordial chest pain concerning for angina with significant improvement with nitroglycerin Diabetes mellitus type 1 Dyspnea Nausea/vomiting, concerning for symptoms from ACS versus other Hyperlipidemia Family history of CAD PLAN Discussed patient's presentation with patient with possibility of vomiting causing some chest pain however significant improvement with nitro with multiple risk factors and discussed definitive evaluation with heart catheterization. Patient understanding and discussed risks and benefits. Patient willing to proceed. Left heart catheterization and check 2D echo. Further recommendations to follow. Past Medical History Past Medical History: Diabetes Mellitus, Hyperlipidemia, Hypertension History of Any Multi-Drug Resistant Organisms: None Reported Past Surgical History: Orthopedic Surgery Additional Past Surgical History / Comment(s): femur fx and repair Past Anesthesia/Blood Transfusion Reactions: No Reported Reaction Past Psychological History: No Psychological Hx Reported Smoking Status: Never smoker Past Alcohol Use History: Rare Past Drug Use History: None Reported - Past Family History Father Family Medical History: CVA/TIA Mother Family Medical History: No Reported History Medications and Allergies Home Medications Medication Instructions Recorded Confirmed Type Atorvastatin Calcium [Lipitor] 40 mg PO DAILY 09/12/20 09/12/20 History Insulin Aspart (Niacinamide) 0.01 unit SQ CONTINUOUS MDD 90 09/12/20 09/12/20 History [Fiasp 100 Unit/ml Vial] UNITS Primidone [Mysoline] 50 mg PO DAILY 09/12/20 09/12/20 History Losartan Potassium [Cozaar] 100 mg PO HS 11/25/24 11/25/24 History Propranolol [Inderal] 10 mg PO HS 11/25/24 11/25/24 History Allergies Allergy/AdvReac Type Severity Reaction Status Date / Time No Known Allergies Allergy Verified 11/25/24 07:42 Physical Exam Vitals: Vital Signs Temp Pulse Resp BP Pulse Ox 11/25/24 07:08 85 17 122/74 95 11/25/24 05:39 96 19 122/83 97 11/25/24 03:47 98.5 F 97 19 141/97 96 Intake and Output 11/24/24 11/25/24 11/25/24 22:59 06:59 14:59 Other: Weight 81.647 kg Results 11/25/24 04:30 11/25/24 04:30 Cardiac Enzymes 11/25/24 11/25/24 Range/Units 04:30 04:30 AST 24 (17-59) U/L Troponin I <0.012 (0.000-0.034) ng/mL Coagulation 11/25/24 Range/Units 04:30 PT 10.1 (10.0-12.5) sec APTT 24.8 (22.0-30.0) sec CBC 11/25/24 Range/Units 04:30 WBC 9.35 (4.50-10.00) 10*3/uL RBC 4.76 (4.40-5.60) 10*6/uL Hgb 13.7 (13.0-17.0) g/dL Hct 41.0 (39.6-50.0) % Plt Count 258 (140-440) 10*3/uL Comprehensive Metabolic Panel 11/25/24 Range/Units 04:30 Sodium 134 L (137-145) mmol/L Potassium 3.9 (3.5-5.1) mmol/L Chloride 103 (98-107) mmol/L Carbon Dioxide 22 (22-30) mmol/L BUN 23 H (9-20) mg/dL Creatinine 1.02 (0.66-1.25) mg/dL Glucose 160 H (74-99) mg/dL Calcium 8.8 (8.4-10.2) mg/dL AST 24 (17-59) U/L ALT 14 (4-49) U/L Alkaline Phosphatase 87 (38-126) U/L Total Protein 5.6 L (6.3-8.2) g/dL Albumin 3.3 L (3.5-5.0) g/dL Current Medications Generic Name Dose Route Start Last Admin Trade Name Freq PRN Reason Stop Dose Admin Aspirin 325 mg 11/26/24 09:00 Aspirin 325 Mg Tab PO DAILY [facility] Atorvastatin Calcium 40 mg 11/25/24 09:00 Atorvastatin 40 Mg Tab PO DAILY [facility] Lisinopril 20 mg 11/25/24 09:00 Lisinopril 20 Mg Tab PO DAILY BRET Nitroglycerin 0.4 mg 11/25/24 06:29 Nitroglycerin Sl Tabs 0.4 Mg Tab SUBLINGUAL Q5M PRN Chest Pain Primidone 50 mg 11/25/24 09:00 Primidone 50 Mg Tab PO DAILY BRET Intake and Output 11/24/24 11/25/24 11/25/24 22:59 06:59 14:59 Other: Weight 81.647 kg 11/25/24 04:30 11/25/24 04:30
[2024-11-25] MEDS ORDERED: ALPRAZolam 0.5 MG TAB PO PRN (08:40)
[2024-11-25] MEDS ORDERED: ALPRAZolam 0.25 MG TAB PO PRN (08:40)
[2024-11-25] MEDS ORDERED: Apixaban Initiation Dose--VTE 5 MG TAB PO SCH (09:00)
[2024-11-25] MEDS ORDERED: NON FORMULARY DRUG (Apixaban [Eliquis Starter Pack (For Vte)] 5 MG Tab.Ds.Pk) PO SCH (09:00)
[2024-11-25] MEDS: ATORVASTATIN 40 MG TAB PO SCH (09:50)
[2024-11-25] MEDS ORDERED: DEXTROSE 50% SYRINGE 50 ML IVP PRN ×2 (10:05)
[2024-11-25] MEDS: ASPIRIN 325 MG TAB PO STA (10:18)
[2024-11-25] MEDS: SODIUM CHLORIDE 0.9% 1,000 ML in EMPTY BAG 1 BAG IV SCH (10:18)
[2024-11-25] MEDS: lisinopriL 20 MG TAB PO SCH (10:18)
[2024-11-25] MEDS: ATORVASTATIN 80 MG TAB PO STA (10:18)
[2024-11-25] MEDS: PRIMIDONE 50 MG TAB PO SCH (10:23)
[2024-11-25] MEDS: HEPARIN SODIUM,PORCINE (1 ML) 2,500 UNIT in SODIUM CHLORIDE 0.9% 250 ML IRRIGATION PRN (12:26)
[2024-11-25] MEDS: HEPARIN SODIUM,PORCINE 10,000 UNIT in SODIUM CHLORIDE 0.9% 1,000 ML IRRIGATION PRN (12:26)
[2024-11-25] MEDS: MIDAZOLAM 2 MG/2 ML VIAL IVP ONE ×2 (12:43→12:50)
[2024-11-25] MEDS: fentaNYL (PF) 50 MCG/1 ML VIAL IVP ONE ×2 (12:43→12:50)
[2024-11-25] MEDS: LIDOCAINE 2% (PF) 20 MG/ML 5 ML VIAL SQ ONE (12:43)
[2024-11-25] MEDS: VERAPAMIL 2.5 MG/ML 4 ML VIAL INTRAARTER ONE (12:45)
[2024-11-25] MEDS: HEPARIN SODIUM 1,000 UN/ML (10ML VL) IVP ONE (12:46)
[2024-11-25] MEDS: IOPAMIDOL-370 100ML BTL INJ ONE (13:02)
--- NOTE | 2024-11-25 13:04 | P.CARDCATH ---
Description of Procedure: PROCEDURES PERFORMED: Left heart catheterization, bilateral coronary angiography, ultrasound guided arterial access INDICATION: Chest pain resolved with nitro concerning for unstable angina CONSENT:I have discussed the risks, benefits and alternative therapies for the above-mentioned procedure and for both sedation/analgesia as well as necessary blood product administration, if indicated, as they pertain to this patient. The patient has indicated understanding and acceptance of the risks and procedures discussed. PROCEDURE: After the risks, benefits and alternatives of the above mentioned procedure explained in detail with the patient, informed consent was obtained. Patient was taken to the catheterization lab and prepped and draped in usual fashion. Ultrasound guidance was used to assess for arterial access. 1% lidocaine was used to anesthetize the right radial artery. A 6-Icelandic sheath was placed in the right radial artery using modified Seldinger technique and ultrasound guidance. Left coronary angiography was performed with a 5-Icelandic JL 3.5 catheter and right coronary angiography was performed with a 5-Icelandic FR5 catheter in various views. A 5-Icelandic FR5 catheter was inserted into the left ventricle and pressure measurements were obtained. The right radial sheath was removed and a TR band was placed with hemostasis achieved. The patient tolerated the procedure well. Patient was transported back to the post catheterization holding area in stable condition. Conscious Sedation: Patient was monitored under the direct supervision of myself for conscious sedation using Versed and fentanyl for a total duration of 9 minutes HEMODYNAMICS: Aorta: 128/72 LV: 127/8, LVEDP 12 SELECTIVE CORONARY ARTERIOGRAPHY: LEFT MAIN: The left main is a large caliber vessel which bifurcates into the LAD and circumflex. There is no significant stenosis. LEFT ANTERIOR DESCENDING CORONARY ARTERY: LAD is a large caliber vessel which wraps around to the apex. There are mild luminal irregularities with 10 to 20% LAD stenosis LEFT CIRCUMFLEX CORONARY ARTERY: Left circumflex is a moderate caliber vessel without significant stenosis. RIGHT CORONARY ARTERY: The right coronary artery is a large caliber vessel which gives off a PDA and PLV branch and is the dominant vessel. There is a 20 to 30% mid RCA stenosis and otherwise mild luminal irregularities FINAL IMPRESSION: 1. Relatively normal coronary arteries with only mild luminal irregularities and a 20 to 30% mid RCA stenosis 2. Normal left sided filling pressures PLAN: 1. Aggressive risk factor modification per most recent ACC/AHA guidelines. 2. Follow-up in the office in 1-2 weeks.
[2024-11-25] MEDS: INSULIN LISPRO (HumaLOG) 100 UNIT/ML 10 mL VL SQ SCH (14:03)
[2024-11-25 15:18] VITALS: RESP 12; TEMP 97.7
[2024-11-25 17:16] VITALS: BP 115/68; PULSE 64
--- NOTE | 2024-11-25 17:18 | P.HPIM ---
History of Present Illness H&P Date: 11/25/24 Chief Complaint: Heartburn Very pleasant 64-year-old patient who follows with Dr. Whalen. Chronic medical conditions include diabetes mellitus on insulin pump, hyperte nsion, hyperlipidemia essential tremor. Yesterday patient was having what he described as stomach ache all day. Hindy's evening vomited x 2. Did not have any diarrhea. In the evening he had heartbu rn with lasted for good half an hour. Patient that morning and had sausages which was sitting the fridge for some time. When he decided to come in. Troponins were negative. Patient this morning started on IV heparin per cardiology. Patient was seen earlier by cardiology and Dr. Beach did take the patient down to the Welding Machine Operator/Tender. Patient was found to have relatively normal coronary arteries. With some mild luminal irregularities 20-30% mid RCA. Patient's at the bedside. Otherwise patient with her good exercise tolerance with no prior cardiac history. 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 No smoking. lives with his Physical examination: VITAL SIGNS: 97.7, 74, 16, 117 x 70, 94% room air GENERAL: BMI 23.7, reclined in bed awake comfortable. EYES: Pupils equal. Conjunctiva vicki l. HEENT: External appearance of nose and ears normal, oral cavity grossly normal. NECK: JVD not raised; masses not palpable. HEART: First and second heart sounds are normal; no edema. LUNGS: Respiratory rate normal; clear to auscultation. ABDOMEN: Soft, nontender, liver spleen not palpable, no masses palpable. PSYCH: Alert and oriented x3; mood and affect vicki l. MUSCULOSKELETAL:No Clubbing/cyanosis;muscles-grossly intact. TR band over right wrist NEUROLOGICAL: Cranial nerves grossly intact; no facial asymmetry, power and sensation grossly intact. LYMPHATICS: No lymph nodes palpable in the axilla and neck INVESTIGATIONS, reviewed in the clinical context: November 25, 2024: White count 9.3 hemoglobin 13.7 platelets 258 sodium 134 potassium 3.9 BUN 23 creatinine 1.02 Troponin I less than 0.012 x 3 EKG tracing personally reviewed by me-LVH. Nonspecific ST-T wave changes. Chest x-ray film personally reviewed by me-possible some chronic changes Assessment plan - Anterior chest wall pain. Possibly episode of GERD following vomiting. Likely acute viral food poisoning.: Self-limiting - Cardiac catheterization showed near normal coronaries. Some irregularities in the RCA. Dr. Beach river guide - Diabetes mellitus type 2, insulin-dependent Patient has insulin pump. This was held prior to the procedure. Put on sliding scale. Postprocedure this is to be resumed. Follow Accu-Cheks - Essential hypertension Cozaar 100 mg nightly - Essential hypertension Inderal 10 mg nightly. Mysoline 100 mg nightly - Full code Care was discussed with the patient at the bedside. Questions answered. Past Medical History Past Medical History: Diabetes Mellitus, Hyperlipidemia, Hypertension History of Any Multi-Drug Resistant Organisms: None Reported Past Surgical History: Orthopedic Surgery Additional Past Surgical History / Comment(s): femur fx and repair Past Anesthesia/Blood Transfusion Reactions: No Reported Reaction Past Psychological History: No Psychological Hx Reported Smoking Status: Never smoker Past Alcohol Use History: Rare Past Drug Use History: None Reported - Past Family History Father Family Medical History: CVA/TIA Mother Family Medical History: No Reported History Medications and Allergies Home Medications Medication Instructions Recorded Confirmed Type Atorvastatin Calcium [Lipitor] 40 mg PO HS 09/12/20 11/25/24 History Insulin Aspart (Niacinamide) 0.01 unit SQ CONTINUOUS 09/12/20 11/25/24 History [Fiasp 100 Unit/ml Vial] Primidone [Mysoline] 100 mg PO HS 09/12/20 11/25/24 History Aspirin 81 mg PO DAILY #1 tab 11/25/24 Rx Losartan Potassium [Cozaar] 100 mg PO HS 11/25/24 11/25/24 History Propranolol [Inderal] 10 mg PO HS 11/25/24 11/25/24 History Allergies Allergy/AdvReac Type Severity Reaction Status Date / Time No Known Allergies Allergy Verified 11/25/24 07:42 Physical Exam Vitals: Vital Signs Temp Pulse Pulse Resp BP BP Pulse Ox 11/25/24 08:45 98.3 F 81 16 146/85 96 11/25/24 08:25 68 16 136/60 98 11/25/24 07:51 87 16 122/74 95 11/25/24 07:08 85 17 122/74 95 11/25/24 05:39 96 19 122/83 97 11/25/24 03:47 98.5 F 97 19 141/97 96 Intake and Output 11/24/24 11/25/24 11/25/24 22:59 06:59 14:59 Other: Weight 81.647 kg Results CBC & Chem 7: 11/25/24 04:30 11/25/24 04:30 Labs: Abnormal Lab Results - Last 24 Hours (Table) 11/25/24 11/25/24 Range/Units 04:30 04:30 Eosinophils # 0.41 H (0.04-0.35) 10*3/uL Sodium 134 L (137-145) mmol/L BUN 23 H (9-20) mg/dL Glucose 160 H (74-99) mg/dL Total Protein 5.6 L (6.3-8.2) g/dL Albumin 3.3 L (3.5-5.0) g/dL
--- NOTE | 2024-11-25 17:21 | P.DS ---
Providers Date of admission: 11/25/24 06:30 Expected date of discharge: 11/25/24 Attending physician: Alonso Motley Consults: 11/25/24 06:29 Consult Physician Routine Consulting Provider: Aaron Huerta Consult Reason/Comments: chest pain Do you want consulting provider notified?: Yes Primary care physician: [facility] Course: Chief Complaint: Heartburn Very pleasant 64-year-old patient who follows with Dr. Whalen. Chronic medical conditions include diabetes mellitus on insulin pump, hypertension, hyperlipidemia essential tremor. Yesterday patient was having what he described as stomach ache all day. Hindy's evening vomited x 2. Did not have any diarrhea. In the evening he had heartburn with lasted for good half an hour. Patient that morning and had sausages which was sitting the fridge for some time. When he decided to come in. Troponins were negative. Patient this morning started on IV heparin per cardiology. Patient was seen earlier by cardiology and Dr. Beach did take the patient down to the [facility]. Patient was found to have relatively normal coronary arteries. With some mild luminal irregularities 20-30% mid RCA. Patient's at the bedside. Otherwise patient with her good exercise tolerance with no prior cardiac history. Patient TR band is being released. Otherwise patient is feeling well. Baby aspirin has been added. 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 No smoking. lives with his Physical examination: VITAL SIGNS: 97.7, 74, 16, 117 x 70, 94% room air GENERAL: BMI 23.7, reclined in bed awake comfortable. EYES: Pupils equal. Conjunctiva vicki l. HEENT: External appearance of nose and ears normal, oral cavity grossly normal. NECK: JVD not raised; masses not palpable. HEART: First and second heart sounds are normal; no edema. LUNGS: Respiratory rate normal; clear to auscultation. ABDOMEN: Soft, nontender, liver spleen not palpable, no masses palpable. PSYCH: Alert and oriented x3; mood and affect vicki l. MUSCULOSKELETAL:No Clubbing/cyanosis;muscles-grossly intact. TR band over right wrist NEUROLOGICAL: Cranial nerves grossly intact; no facial asymmetry, power and sensation grossly intact. LYMPHATICS: No lymph nodes palpable in the axilla and neck INVESTIGATIONS, reviewed in the clinical context: November 25, 2024: White count 9.3 hemoglobin 13.7 platelets 258 sodium 134 potassium 3.9 BUN 23 creatinine 1.02 Troponin I less than 0.012 x 3 EKG tracing personally reviewed by me-[facility]. Nonspecific ST-T wave changes. Chest x-ray film personally reviewed by me-possible some chronic changes Assessment plan - Anterior chest wall pain. Possibly episode of GERD following vomiting. Likely acute viral food poisoning.: Self-limiting - Cardiac catheterization showed near normal coronaries. Some irregularities in the RCA. Dr. Beach resident care manager rn - Diabetes mellitus type 2, insulin-dependent Insulin pump - Essential hypertension Cozaar 100 mg nightly - Essential hypertension Inderal 10 mg nightly. Mysoline 100 mg nightly - Full code Disposition: Home Past Medical History Past Medical History: Diabetes Mellitus, Hyperlipidemia, Hypertension History of Any Multi-Drug Resistant Organisms: None Reported Past Surgical History: Orthopedic Surgery Additional Past Surgical History / Comment(s): femur fx and repair Past Anesthesia/Blood Transfusion Reactions: No Reported Reaction Past Psychological History: No Psychological Hx Reported Smoking Status: Never smoker Past Alcohol Use History: Rare Past Drug Use History: None Reported Plan - Discharge Summary Discharge Rx Participant: No New Discharge Prescriptions: New Aspirin 81 mg PO DAILY #1 tab Continue Insulin Aspart (Niacinamide) [Fiasp 100 Unit/ml Vial] 0.01 unit SQ CONTINUOUS Atorvastatin Calcium [Lipitor] 40 mg PO HS Losartan Potassium [Cozaar] 100 mg PO HS Primidone [Mysoline] 100 mg PO HS Propranolol [Inderal] 10 mg PO HS Discharge Medication List Atorvastatin Calcium [Lipitor] 40 mg PO HS 09/12/20 [History] Insulin Aspart (Niacinamide) [Fiasp 100 Unit/ml Vial] 0.01 unit SQ CONTINUOUS 09/12/20 [History] Primidone [Mysoline] 100 mg PO HS 09/12/20 [History] Aspirin 81 mg PO DAILY #1 tab 11/25/24 [Rx] Losartan Potassium [Cozaar] 100 mg PO HS 11/25/24 [History] Propranolol [Inderal] 10 mg PO HS 11/25/24 [History] Follow up Appointment(s)/Referral(s): Edgardo Beach DO [STAFF PHYSICIAN] - 3 Weeks Jose Manuel Whalen MD [Primary Care Provider] - 1-2 days Patient Instructions/Handouts: Chest Pain (ED), Heart Catheterization (DC)
[2024-11-26] MEDS ORDERED: INSULIN GLARGINE (LANTUS) 100 UNIT/ML SYR SQ SCH (07:00)
[2024-11-26] MEDS ORDERED: ASPIRIN 325 MG TAB PO SCH (09:00)
== END 2024-11-25 17:47 | disposition home or self-care (01) ==
LOC: EC 03:45 → 6NMEDSUR 06:30
PROVIDERS: ADMIT Hospitalist; ATTEND Hospitalist
DX: R07.89 Other chest pain (principal); I25.10 Atherosclerotic heart disease of native coronary artery without angina pectoris; I10 Essential (primary) hypertension; E78.5 Hyperlipidemia, unspecified; E10.9 Type 1 diabetes mellitus without complications; F17.220 Nicotine dependence, chewing tobacco, uncomplicated; Z96.41 Presence of insulin pump (external) (internal); Z79.4 Long term (current) use of insulin; Z79.82 Long term (current) use of aspirin; Z79.899 Other long term (current) drug therapy; Z82.49 Family history of ischemic heart disease and other diseases of the circulatory system
CPT/HCPCS: 93458; 99285; 36415; 93005; 80053; 83735; 84484; 85025; 85610; 85730; 71045; G0378; C1769; C1894; J2250; J1644 ×3; Q9967; J2003; J3010